=== PATIENT | female | born 1990 | race Caucasian/White ===

== ENCOUNTER 2019-10-27 14:55 | Emergency (ER) | payer MEDICAID ==
--- NOTE | 2019-10-27 15:29 | EDM.PDOC ---
ED HPI GENERAL MEDICAL PROBLEM - General Chief Complaint: ENT Problem Stated Complaint: DENTAL COMPLAINT Time Seen by Provider: 10/27/19 15:00 Source of Information: Reports: Patient, RN Notes Reviewed History Limitations: Reports: No Limitations - History of Present Illness INITIAL COMMENTS - FREE TEXT/NARRATIVE: Patient is a 29-year-old female who presents to the ED for left-sided facial pain and swelling. Patient notes that she had a similar episode last week, and seem to get better. She states that she is experiencing left-sided facial pain, swelling, ear pressure, and she had some difficulty swallowing last night due to the pain. She took some ibuprofen last night it seemed to help a little bit. She denies any dental issues, does not hurt to chew, and she has no cold or hot sensitivity. Last night she states she felt as if she had lockjaw. She notes this is a very sharp shooting pain, and she had so much so that it radiated down her neck last night. She notes that it is very hard or bothersome to turn her neck/head to the right. She denies any history of thyroid issues. Her primary care provider is Alix Jeter. She denies any fevers or chills, states she did get some hot flashes with pain. She denies any nausea vomiting or diarrhea, no cough or shortness of breath. - Related Data Allergies Allergy/AdvReac Type Severity Reaction Status Date / Time amoxicillin Allergy Cannot Verified 10/27/19 15:08 Remember Penicillins Allergy Cannot Verified 10/27/19 15:08 Remember Home Meds: Home Meds Antidepressant 1 tab PO ASDIRECTED 10/27/19 [History] Control 1 tab PO DAILY 10/27/19 [History] Diclofenac Sodium [Voltaren] 75 mg PO BIDMEALS #14 tab.cr 10/27/19 [Rx] Lisdexamfetamine Dimesylate [Vyvanse] 10 mg PO DAILY 10/27/19 [History] predniSONE 20 mg PO ASDIRECTED #15 tab 10/27/19 [Rx] Past Medical History - Past Health History Medical/Surgical History: Denies Medical/Surgical History Social & Family History - Tobacco Use Smoking Status *Q: Current Every Day Smoker Years of Tobacco use: 5 Packs/Tins Daily: 0.1 - Caffeine Use Caffeine Use: Reports: Coffee - Recreational Drug Use Recreational Drug Use: No ED ROS ENT - Review of Systems Review Of Systems: Comprehensive ROS is negative, except as noted in HPI. ED EXAM, ENT - Physical Exam Exam: See Below Exam Limited By: No Limitations General Appearance: Alert, WD/WN, No Apparent Distress Ears: Normal External Exam, Normal Canal, Hearing Grossly Normal, Normal TMs Mouth/Throat: Normal Inspection, Normal Gums, Normal Lips, Normal Oropharynx, Normal Teeth Head: Atraumatic, Normocephalic, Facial Tenderness (she has most tenderness on the left side of her face over the TMJ, tragus and mastoid process. She also has mild tenderness to her left anterior neck around her sternocleidomastoid muscle.) Neck: Normal Inspection, Supple, Full Range of Motion, Tender Lateral (left lateral anterior neck tenderness to mild palpation) Respiratory/Chest: No Respiratory Distress, Lungs Clear, Normal Breath Sounds, No Accessory Muscle Use, Chest Non-Tender Cardiovascular: Normal Peripheral Pulses, Regular Rate, Rhythm, No Murmur Extremities: Normal Inspection, Normal Capillary Refill Neurological: Alert, Oriented, Normal Cognition, No Motor/Sensory Deficits Psychiatric: Normal Affect, Normal Mood Skin: Warm, Dry, Intact, Normal Color, No Rash Course - Vital Signs Last Recorded V/S: Last Vital Signs Temp 98.1 F 10/27/19 15:04 Pulse 86 10/27/19 15:04 Resp 16 10/27/19 15:04 BP 141/94 H 10/27/19 15:04 Pulse Ox 99 10/27/19 15:04 - Re-Assessments/Exams Free Text/Narrative Re-Assessment/Exam: 10/27/19 15:33 The patient presents to the ED for evaluation of her left sided facial pain and swelling. This is most likely due to TMJ. We will trial her on prednisone and Voltaren for management. If pain is not getting much better in a few days time will have her follow-up with Alix Jeter for reevaluation. Departure - Departure Time of Disposition: 15:26 Disposition: Home, Self-Care 01 Condition: Good Clinical Impression: TMJ (temporomandibular joint syndrome) - Discharge Information *PRESCRIPTION DRUG MONITORING PROGRAM REVIEWED*: No *COPY OF PRESCRIPTION DRUG MONITORING REPORT IN PATIENT TODD: No Prescriptions: predniSONE 20 mg PO ASDIRECTED #15 tab Diclofenac Sodium [Voltaren] 75 mg PO BIDMEALS #14 tab.cr Instructions: Temporomandibular Joint Syndrome Referrals: Alix Jeter PA-C [Primary Care Provider] - Forms: ED Department Discharge Additional Instructions: You were evaluated in the ER today for your left-sided facial pain and swelling. A thorough examination was done today, and your pain is most likely due to TMJ pain. It is likely that you clench her jaw at night, and this is caused aggrav ation to the nerve that runs along your jaw causing the pain and swelling that you are experiencing. We will start you on a course of steroids, and an anti-inflammatory. Prednisone will be 1 tab 2 times a day for 5 days, then 1 tab once daily for 5 days. Voltaren will be 1 tab twice daily until gone. If you get upset stomach with this, you may discontinue use and try ibuprofen 6 mg every 6 hours as needed for further pain relief. Recommend you take these medications with a meal, to prevent GI upset. Recommend close follow-up with your primary care provider, Alix Jeter, sometime this week to recheck her symptoms make sure everything is getting better as expected. Please return to the ER at any time if your symptoms change or worsen. Sepsis Event Note (ED) - Evaluation Sepsis Screening Result: No Definite Risk - Focused Exam Vital Signs: Vital Signs Temp Pulse Resp BP Pulse Ox 10/27/19 15:04 98.1 F 86 16 141/94 H 99
== END 2019-10-27 15:44 | disposition home or self-care (01) ==
LOC: JD.ED 14:55
DX: M26.602 Left temporomandibular joint disorder, unspecified (principal); F17.210 Nicotine dependence, cigarettes, uncomplicated; Z88.0 Allergy status to penicillin; Z88.1 Allergy status to other antibiotic agents
CPT/HCPCS: 99283